=== PATIENT | female | born 1990 | race Caucasian/White ===

== ENCOUNTER 2020-09-12 20:15 | Inpatient (IN) | payer OTHER, SELFPAY ==
[2020-09-12] VITALS (10 sets, daily range): BP systolic 135–151; BP diastolic 85–98; PULSE 77–89; TEMP 36.3–37; BMI 27.5
[2020-09-12] MEDS: 0.9% Normal Saline Single 100 ML IV.SOLN. INTRA-UTER (19:38)
--- NOTE | 2020-09-12 20:19 | HP.PCM.OB_ITS ---
HPI - General HPI Narrative MINO GONZALEZ, is a 29 F who presents at 41 weeks for induction of labor. with care at another practice and transferred in 3rd trimester. conceived with IUI. History of hypothyroidism, Rubella non immune. Maternal Data Information Final RALPH: 09/05/20 Final RALPH Source: US <20 weeks Gestational age: 41 weeks PFSH Home Medications levothyroxine [Synthroid] 25 mcg PO DAILY 09/12/20 [History Last Taken 09/12/20 07:00] [id number] [] 1 tab PO DAILY 09/12/20 [History Last Taken 09/11/20 20:00] Allergy/AdvReac Type Severity Reaction Status Date / Time No Known Allergies Allergy Verified 09/12/20 18:40 NST FHR Rate Baby A Baseline: 145 Variability:: Moderate Accelerations:: 15 x 15 Decelerations:: None FHR Category:: Category I Uterine Activity:: Irregular ROS Constitutional Constitutional: Reports systems reviewed and no addt'l complaints, except as documented; Denies headache(s) Eyes Eyes: Denies acute decrease in peripheral vision, blurry vision or change in vision ENT HEENT: Reports systems reviewed and no addt'l complaints, except as documented Cardiovascular Cardiovascular: Denies chest pain or dizziness Respiratory/Chest Respiratory/Chest: Denies cough, dyspnea, dyspnea on exertion, shortness of meera th at rest or shortness of breath with exertion Gastrointestinal Gastrointestinal: Denies abdominal pain, diarrhea, nausea or vomiting Genitourinary Genitourinary: Denies abdominal discomfort or movement Musculoskeletal Musculoskeletal: Denies limited range of motion Integumentary Integumentary: Reports systems reviewed and no addt'l complaints, except as documented Neurologic Neurologic: Reports systems reviewed and no addt'l complaints, except as documented Psychiatric Psychiatric: Reports systems reviewed and no addt'l complaints, except as docume nted Endocrine Endocrinology: Reports systems reviewed and no addt'l complaints, except as documented Hematologic/Lymphatic Hematologic/Lymphatic: Reports systems reviewed and no addt'l complaints, except as documented Allergic/Immunologic Allergic/Immunologic: Reports systems reviewed and no addt'l complaints, except as documented Vital Signs Vital Signs Vital Signs: 09/12/20 18:37 09/12/20 18:38 09/12/20 18:39 Temperature 97.3 F L Temperature Source Temporal Pulse Rate 89 87 Blood Pressure 151/98 H 138/85 H BP Systolic 151 138 BP Diastolic 98 85 09/12/20 18:55 09/12/20 19:11 09/12/20 19:26 Temperature Temperature Source Pulse Rate 86 86 84 Blood Pressure 136/90 H 135/89 H 140/92 H BP Systolic 136 135 140 BP Diastolic 90 89 92 09/12/20 20:02 Temperature 98.6 F Temperature Source Temporal Pulse Rate 89 Blood Pressure 144/93 H BP Systolic 144 BP Diastolic 93 Weight Weight: 150 lb 5.684 oz Body Mass Index (BMI) 27.5 Physical Exam Narrative Hugo inserted over stylet into cervical os, patient tolerated well. 30ml of NS instilled into hugo balloon. Manual OB Exam: estimated gestational size appropriate, presentation cephalic, dilated 1cm, effaced 80% and station -2 Uterus Palpation: uterus fundus Amniotic Fluid: no amniotic fluid noted Labs Labs Labs: No Data to Display COVID negative GC/CT negative A positive Rubella equivocal RPR negative HIV negative Urine tox negative HBsAG and Hep C not complete Assessment & Plan (1) Encounter for induction of labor: (2) Post-dates : (3) Hypothyroidism: PLAN: 1) Admit to labor and delivery 2) IV and routine labs 3) Elevated BP upon admission, will draw preeclampsia labs 4) FHR and EFM 5) Hugo for cervical ripening then pitocin 6) Planning unmedicated , has applications support engineer for labor support 7) collaborative physician and notified of patient status
[2020-09-12 20:59] LABS: Absolute Lymphocyte Count 2.38 X10^3/uL (0.83-4.51); Absolute Neutrophil Count 7.5 X10^3/uL (2.0-7.7); Basophil# 0.03 X10^3/uL; Basophil% 0.3 % (0-1); Eosinophil# 0.06 X10^3/uL; Eosinophils% 0.5 % (0-5); Hemoglobin 12.9 g/dL (12.0-15.0); Lymphocyte # 2.38 X10^3/ul (0.83-4.51); Lymphocyte % 21.6 % (19-41); Mean Corp Hgb Conc 33.9 g/dL (32-36); Mean Corpuscular Hgb 31.9 pg (27.0-32.0); Mean Corpuscular Volume 93.8 fL (81-99); Mean Platelet Vol. 12.6 fl (6.2-12.0); Monocyte# 0.96 X10^3/uL; Monocyte% 8.7 % (0-10); NRBC Flagged by Analyzer 0 % (0-5); Neutrophil # 7.54 X10^3/uL (2.7-7.7); Neutrophil % 68.4 % (47-70); Platelet Count 228 K/mm3 (150-450); RBC Distribution Width CV 12.9 % (11.6-14.6); RBC Distribution Width SD 43.9 fl (35.1-43.9); Red Blood Count 4.05 M/mm3 (4.2-5.4)
[2020-09-12 21:11] LABS: Protein:Creat Ratio 1979 mg/g CRE (0-200)
[2020-09-12 21:15] LABS: AST(SGOT) 27 U/L (15-37); Alanine Aminotransfer ALT/SGPT 15 U/L (13-56); Creatinine, Serum 0.77 mg/dL (0.55-1.02); EST Glomerular Filtration Rate 93 mL/min (>60); Est Glom Filt Rate - Afr Amer 113 mL/min (>60); Estimated Creatinine Clearance 85.26 ml/min; Uric Acid 5.6 mg/dL (2.6-6.0)
[2020-09-12 23:03] LABS: Hepatitis B Surface Antigen Non-Reactive (Nonreactive)
[2020-09-13] VITALS (54 sets, daily range): BP systolic 116–161; BP diastolic 63–103; PULSE 80–123; TEMP 36.1–37.8; O2SAT 85–100
[2020-09-13 00:10] LABS: Hepatitis C Antibody Non-Reactive (Nonreactive)
[2020-09-13] MEDS: Lactated Ringers 1,000 ML 200 ML IV ×3 (00:21→18:19)
[2020-09-13] MEDS: Oxytocin 30 units/NS 500 ml 30 UNITS/500 ML IV.SOLN IV (00:21)
--- NOTE | 2020-09-13 08:55 | PCM.PN.OB ---
Subjective Subjective Patient seen at bedside. Ambulating in room. Reports minimal pain with contractions. Denies any headaches, SOB, CP, vision changes or RUQ pain Objective Data Objective Data CE- 370/-1 Pitocin 10 mu/min BP's remain elevated at 130-140's/80-90's Denies pain Vital Signs: Vital Signs Temp Pulse BP Pulse Ox 98.0 F 91 139/97 H 99 09/13/20 07:20 09/13/20 08:13 09/13/20 08:13 09/13/20 08:13 Weight: 150 lb 5.684 oz Body Mass Index (BMI) 27.5 Intake & Output: Intake and Output for Last 24 Hours 09/11/20 09/12/20 09/13/20 23:59 23:59 23:59 Intake Total 500 / 500 1541.03 / 1541.03 Output Total 1100 / 1100 Balance 500 / 500 441.03 / 441.03 Lab / Micro Data Attestation: I reviewed the patient's lab results. Result Diagrams: 09/12/20 20:44 09/12/20 20:44 Labs: Laboratory Results - last 24 hr 09/12/20 09/12/20 09/12/20 20:35 20:44 20:44 WBC 11.0 RBC 4.05 L Hgb 12.9 Hct 38.0 MCV 93.8 MCH 31.9 MCHC 33.9 RDW Std Deviation 43.9 RDW Coeff of Darron 12.9 Plt Count 228 MPV 12.6 H Immature Gran % (Auto) 0.500 Neut % (Auto) 68.4 Lymph % (Auto) 21.6 [place] % (Auto) 8.7 Eos % (Auto) 0.5 Baso % (Auto) 0.3 Absolute Neuts (auto) 7.5 Absolute Lymphs (auto) 2.38 Nucleated RBC % 0 Creatinine Estim Creat Clear Calc Est GFR (MDRD) Af Amer Est GFR (MDRD) Non-Af Uric Acid AST ALT U Random Total Protein 76.0 H Urine Creatinine 38.40 Protein/Creatinin Ratio 1979 H Hep Bs Antigen Hepatitis C Antibody Blood Type A POSITIVE Antibody Screen NEGATIVE 09/12/20 09/12/20 09/12/20 20:44 20:44 20:44 WBC RBC Hgb Hct MCV MCH MCHC RDW Std Deviation RDW Coeff of Darron Plt Count MPV Immature Gran % (Auto) Neut % (Auto) Lymph % (Auto) [place] % (Auto) Eos % (Auto) Baso % (Auto) Absolute Neuts (auto) Absolute Lymphs (auto) Nucleated RBC % Creatinine 0.77 Estim Creat Clear Calc 85.26 Est GFR (MDRD) Af Amer 113 Est GFR (MDRD) Non-Af 93 Uric Acid 5.6 AST 27 ALT 15 U Random Total Protein Urine Creatinine Protein/Creatinin Ratio Hep Bs Antigen Non-Reactive Hepatitis C Antibody Non-Reactive Blood Type Antibody Screen ROS Eyes Eyes: Denies blurry vision, change in vision or spots in vision ENT HEENT: Denies dizziness or headache(s) Cardiovascular Cardiovascular: Denies abdominal pain, chest pain or dyspnea Respiratory/Chest Respiratory/Chest: Denies cough, dyspnea, shortness of breath at rest or shortness of breath with exertion Gastrointestinal Gastrointestinal: Denies abdominal pain, diarrhea or vomiting Genitourinary Genitourinary: Denies change in urinary stream, difficulty urinating or dysuria Musculoskeletal Musculoskeletal: Reports none Integumentary Integumentary: Denies rash Neurologic Neurologic: Denies dizziness, headache(s), memory loss or weakness Psychiatric Psychiatric: Reports none Physical Exam Const alert and no apparent distress General Appearance: cooperative and comfortable Exam Limitations: no limitations HEENT normocephalic Eyes General Eye: normal appearance of both eyes Neck full ROM General: normal visual inspection Chest Chest: symmetrical chest wall rise Resp normal respiratory effort and normal air movement Effort and Inspection: symmetric chest movement Auscultation: clear to auscultation bilaterally Cardio regular rate and regular rhythm GI normal to inspection, nondistended, normoactive bowel sounds Back/Spine normal ROM Extremity full ROM and no calf tenderness Extremity Narrative: +2 edema bilateral feet- non pitting General Extremity: normal exam except as noted Skin no rashes or lesions noted Neuro CN's II-XII intact bilaterally and deep tendon reflexes 2+ bilaterally Motor Exam: clonus absent Psych mental status grossly normal Assessment & Plan (1) Encounter for induction of labor: (2) Post-dates : QUALIFIERS: Post-term type: 40-42 weeks gestation Qualified Code(s): O48.0 - Post-term PLAN: Cat. 1 tracing Pitocin at 10 mu/min- continue to titrate per orders Pain medication if indicated Anticipate Dr. Lechuga updated on patient's status
[2020-09-13] MEDS: Lactated Ringers 1,000 ML 50 ML IV (10:05)
--- NOTE | 2020-09-13 13:30 | PCM.PN.OB ---
Subjective Subjective Patient seen at bedside. Starting to feel an increase in pain with contractions but still able to ambulate in room. Patient requesting AROM if CE unchanged. Still desires unmedicated labor and delivery Objective Data Objective Data AROM for meconium fluid CE- 3.5/70/-1 IUPC placed without difficulty Vital Signs: Vital Signs Temp Pulse BP Pulse Ox 97.0 F L 80 139/85 H 95 09/13/20 15:07 09/13/20 16:04 09/13/20 16:04 09/13/20 15:07 Weight: 150 lb 5.684 oz Body Mass Index (BMI) 27.5 Intake & Output: Intake and Output for Last 24 Hours 09/11/20 09/12/20 09/13/20 23:59 23:59 23:59 Intake Total 500 / 500 2851.96 / 2851.96 Output Total 1750 / 1750 Balance 500 / 500 1101.96 / 1101.96 Lab / Micro Data Result Diagrams: 09/12/20 20:44 09/12/20 20:44 Labs: Laboratory Results - last 24 hr 09/12/20 09/12/20 09/12/20 20:35 20:44 20:44 WBC 11.0 RBC 4.05 L Hgb 12.9 Hct 38.0 MCV 93.8 MCH 31.9 MCHC 33.9 RDW Std Deviation 43.9 RDW Coeff of Darron 12.9 Plt Count 228 MPV 12.6 H Immature Gran % (Auto) 0.500 Neut % (Auto) 68.4 Lymph % (Auto) 21.6 [place] % (Auto) 8.7 Eos % (Auto) 0.5 Baso % (Auto) 0.3 Absolute Neuts (auto) 7.5 Absolute Lymphs (auto) 2.38 Nucleated RBC % 0 Creatinine Estim Creat Clear Calc Est GFR (MDRD) Af Amer Est GFR (MDRD) Non-Af Uric Acid AST ALT U Random Total Protein 76.0 H Urine Creatinine 38.40 Protein/Creatinin Ratio 1979 H Hep Bs Antigen Hepatitis C Antibody Blood Type A POSITIVE Antibody Screen NEGATIVE 09/12/20 09/12/20 09/12/20 20:44 20:44 20:44 WBC RBC Hgb Hct MCV MCH MCHC RDW Std Deviation RDW Coeff of Darron Plt Count MPV Immature Gran % (Auto) Neut % (Auto) Lymph % (Auto) [place] % (Auto) Eos % (Auto) Baso % (Auto) Absolute Neuts (auto) Absolute Lymphs (auto) Nucleated RBC % Creatinine 0.77 Estim Creat Clear Calc 85.26 Est GFR (MDRD) Af Amer 113 Est GFR (MDRD) Non-Af 93 Uric Acid 5.6 AST 27 ALT 15 U Random Total Protein Urine Creatinine Protein/Creatinin Ratio Hep Bs Antigen Non-Reactive Hepatitis C Antibody Non-Reactive Blood Type Antibody Screen ROS Eyes Eyes: Denies blurry vision, change in vision or spots in vision ENT HEENT: Denies dizziness or headache(s) Cardiovascular Cardiovascular: Denies abdominal pain, chest pain or dyspnea Respiratory/Chest Respiratory/Chest: Denies cough, dyspnea, shortness of breath at rest or shortness of breath with exertion Gastrointestinal Gastrointestinal: Denies abdominal pain, diarrhea or vomiting Genitourinary Genitourinary: Denies change in urinary stream, difficulty urinating or dysuria Musculoskeletal Musculoskeletal: Reports none Integumentary Integumentary: Denies rash Neurologic Neurologic: Denies dizziness, headache(s), memory loss or weakness Psychiatric Psychiatric: Reports none Physical Exam Const alert and no apparent distress General Appearance: cooperative and comfortable Exam Limitations: no limitations HEENT normocephalic Eyes General Eye: normal appearance of both eyes Neck full ROM General: normal visual inspection Chest Chest: symmetrical chest wall rise Resp normal respiratory effort and normal air movement Effort and Inspection: symmetric chest movement Auscultation: clear to auscultation bilaterally Cardio regular rate and regular rhythm GI normal to inspection, nondistended, normoactive bowel sounds Back/Spine normal ROM Extremity full ROM and no calf tenderness General Extremity: normal exam except as noted Skin no rashes or lesions noted Neuro CN's II-XII intact bilaterally Psych mental status grossly normal Assessment & Plan (1) Post-dates : QUALIFIERS: Post-term type: 40-42 weeks gestation Qualified Code(s): O48.0 - Post-term (2) Encounter for induction of labor: PLAN: Category 1 tracing NST reactive Pitocin 12 mu/min- continue to increase per policy Anticipate Dr. Alvarez updated on patient's status
[2020-09-13] MEDS: Lactated Ringers 500 ML 999 ML IV (16:25)
[2020-09-13] MEDS: fentaNYL-bupivacaine (epidural) 100 ML BAG EPIDURAL ×2 (17:00→22:55)
[2020-09-13] MEDS: Calcium Carbonate 500 MG Tablet 1000 MG PO (20:57)
[2020-09-14] VITALS (42 sets, daily range): BP systolic 108–158; BP diastolic 57–107; PULSE 84–148; RESP 16–18; TEMP 36.1–37.7; O2SAT 91–99
[2020-09-14] MEDS: Lactated Ringers 1,000 ML 200 ML IV ×2 (00:30→05:31)
[2020-09-14] MEDS: fentaNYL-bupivacaine (epidural) 100 ML BAG EPIDURAL (04:04)
[2020-09-14] MEDS: Ondansetron 4 MG/2 ML Vial IV (04:36)
[2020-09-14] MEDS: Oxytocin 30 units/NS 500 ml 30 UNITS/500 ML IV.SOLN 334 UNITS IV (07:08)
--- NOTE | 2020-09-14 08:03 | EX.PCM.OBRPT ---
Assessment & Plan (1) (spontaneous vaginal delivery): (2) Laceration, obstetrical, second degree: Vaginal Delivery Maternal Presentation Maternal Presentation: Medically Indicated Induction Type of Induction: Pitocin, Jones Bulb and Amniotomy Medical Reason for Induction: Post term Operative Information Date of Procedure: 09/14/20 Pre-Operative Diagnosis: Term gestation, induction of labor Post-Operative Diagnosis: Same, live female Surgery / Procedure Performed: Spontaneous Vaginal Delivery Type of Anesthesia: Epidural Estimated Blood Loss: 350 Time of Delivery: 07:00 Findings Description of Procedure: Called to patient's room for examination due to patient feeling pressure. Complete dilation and 0 station. Patient pushing well with contractions. Labor support provided. Several position changes completed while pushing. head delivered with maternal effort. Loose nuchal cord felt and easily reduced. Anterior shoulder delivered followed by posterior shoulder and remainder of infant. Infant placed on maternal abdomen and attended to by nursing staff. IV pitocin started for active management of the third stage. 3 vessel cord clamped and cut after delay by FOB. Infant placed immediately skin to skin. Placenta delivered spontaneously and intact. Patient noted to have a second degree perineal laceration and bilateral labial lacerations that were repaired in usual fashion using 3-0 Vicryl Rapid. Hemostasis obtained. Fundus firm 2 below U. EBL 350cc- APGARS 8/9 Patient and infant bonding and are skin to skin at this time. Dr. Lechuga notified of delivery Presentation: Vertex Amniotic Membrane Rupture Type: Artificial Time of Membrane Rupture: 1250 Amniotic Fluid Description: Lightly stained meconium Placental Delivery Description: Spontaneous Placenta Disposition: With patient Specimen(s) Removed: Placenta home with patient Cord Vessel Description: 3 Vessels Cord Entanglement: Around neck x 1, loose Nuchal Cord Compression: Without compression Infant A Gender: Female (1 minute): 8 (5 minute): 9 Delayed Cord Clamping: Yes Post Vaginal Delivery Medications Given After Delivery: IV Pitocin Episiotomy Description: None Laceration: 1st degree and 2nd degree Complication Complications: None
[2020-09-14] MEDS: 0.9% Saline Lock 10 ML Syringe IV ×3 (09:27→21:32)
[2020-09-14] MEDS: Levothyroxine 25 MCG TABLET PO (10:44)
--- NOTE | 2020-09-14 11:14 | NURSING ---
Epidural catheter removed. Blue tip intact. Patient attempted to stand up with this RN at bedside, but became dizzy upon sitting on the edge of the bed and reported ringing in the ears. This RN and Valentino Waterman RN assisted patient in hygiene while patient was sitting at edge of bed and helped patient lay back down. Patient reports feeling better.
[2020-09-14] MEDS: Prenatal Vits Tablet 1 TABLET PO (12:55)
--- NOTE | 2020-09-14 19:29 | NURSING ---
Call placed to Chula Garcia CNM to update on patient's vitals throughout day. Order for a CBC. Call back with results. Update passed on to Elenita Steen RN.
[2020-09-14 20:10] LABS: Absolute Lymphocyte Count 3.03 X10^3/uL (0.83-4.51); Basophil# 0.05 X10^3/uL; Basophil% 0.2 % (0-1); Eosinophil# 0.02 X10^3/uL; Eosinophils% 0.1 % (0-5); Hemoglobin 8.3 g/dL (12.0-15.0); Lymphocyte # 3.03 X10^3/ul (0.83-4.51); Lymphocyte % 13.1 % (19-41); Mean Corp Hgb Conc 33.2 g/dL (32-36); Mean Corpuscular Hgb 32.3 pg (27.0-32.0); Mean Corpuscular Volume 97.3 fL (81-99); Mean Platelet Vol. 12.1 fl (6.2-12.0); Monocyte# 1.75 X10^3/uL; Monocyte% 7.6 % (0-10); NRBC Flagged by Analyzer 0 % (0-5); Neutrophil # 17.97 X10^3/uL (2.7-7.7); Neutrophil % 77.8 % (47-70); POSITIVE DIFFERENTIAL YES; Platelet Count 165 K/mm3 (150-450); RBC Distribution Width CV 13.5 % (11.6-14.6); RBC Distribution Width SD 48.1 fl (35.1-43.9); Red Blood Count 2.57 M/mm3 (4.2-5.4); White Blood Count 23.1 K/mm3 (4.4-11.0)
[2020-09-14 20:13] LABS: Differential Indicated SCAN CRITERIA MET
[2020-09-14] MEDS: Senna/Docusate Sodium 1 Tablet PO (20:19)
[2020-09-14] MEDS: Naproxen 500 MG Tablet PO (20:19)
[2020-09-14 20:38] LABS: Differential Comment SCANNED
[2020-09-14] MEDS: Sodium Ferric Gluconat 250 MG in 0.9% Normal Saline 250 ML 135 MG IV (21:31)
[2020-09-14] MEDS: DiphenhydrAMINE 50 MG/ML Syringe 25 MG IV (21:31)
[2020-09-15] VITALS (13 sets, daily range): BP systolic 102–139; BP diastolic 52–94; PULSE 96–116; RESP 16–18; TEMP 35.8–36.5; O2SAT 97–100
[2020-09-15] MEDS: 0.9% Saline Lock 10 ML Syringe IV ×3 (00:27→12:54)
[2020-09-15 05:26] LABS: Absolute Lymphocyte Count 3.57 X10^3/uL (0.83-4.51); Absolute Neutrophil Count 14.3 X10^3/uL (2.0-7.7); Basophil# 0.06 X10^3/uL; Basophil% 0.3 % (0-1); Eosinophil# 0.06 X10^3/uL; Eosinophils% 0.3 % (0-5); Hemoglobin 7.7 g/dL (12.0-15.0); Lymphocyte # 3.57 X10^3/ul (0.83-4.51); Mean Corp Hgb Conc 33.5 g/dL (32-36); Mean Corpuscular Hgb 32.6 pg (27.0-32.0); Mean Corpuscular Volume 97.5 fL (81-99); Mean Platelet Vol. 12.5 fl (6.2-12.0); Monocyte# 1.66 X10^3/uL; Monocyte% 8.4 % (0-10); NRBC Flagged by Analyzer 0 % (0-5); Neutrophil # 14.26 X10^3/uL (2.7-7.7); Neutrophil % 71.9 % (47-70); POSITIVE DIFFERENTIAL YES; Platelet Count 160 K/mm3 (150-450); RBC Distribution Width CV 13.5 % (11.6-14.6); Red Blood Count 2.36 M/mm3 (4.2-5.4); White Blood Count 19.8 K/mm3 (4.4-11.0)
[2020-09-15 05:29] LABS: Differential Indicated SCAN CRITERIA MET
--- NOTE | 2020-09-15 08:25 | PCM.PROGNOTE ---
Subjective Subjective Doing well per patient and nursing staff. Ambulating and taking PO without difficulty. Voiding and passing flatus. . Mild headache, no visual changes. Denies chest pain, shortness of breath, dizziness, leg pain, or increased vaginal bleeding or clots. Lochia normal. Pain controlled. Having pain in tailbone. supportive at bedside. Objective Data Objective Data Vital Signs: Vital Signs Temp Pulse Resp BP Pulse Ox 96.5 F L 115 H 18 126/85 H 99 09/15/20 04:00 09/15/20 04:00 09/15/20 04:00 09/15/20 04:00 09/15/20 04:00 Oxygen Delivery Method Room Air Weight: 150 lb 5.684 oz Body Mass Index (BMI) 27.5 Intake & Output: Intake and Output for Last 24 Hours 09/13/20 09/14/20 09/15/20 23:59 23:59 23:59 Intake Total 4542.86 / 4542.86 3577.77 / 3577.77 270 / 270 Output Total 2049 / 0 1900 / 1900 Balance 2492.86 / 2492.86 1677.77 / 1677.77 270 / 270 Lab / Micro Data Result Diagrams: 09/15/20 05:17 09/12/20 20:44 Labs: Laboratory Results - last 24 hr 09/12/20 09/14/20 09/15/20 20:44 20:00 05:17 WBC 23.1 H 19.8 H RBC 2.57 L 2.36 L Hgb 8.3 L 7.7 L Hct 25.0 L 23.0 L MCV 97.3 97.5 MCH 32.3 H 32.6 H MCHC 33.2 33.5 RDW Std Deviation 48.1 H 48.0 H RDW Coeff of Darron 13.5 13.5 Plt Count 165 160 MPV 12.1 H 12.5 H Immature Gran % (Auto) 1.200 H 1.100 H Neut % (Auto) 77.8 H 71.9 H Lymph % (Auto) 13.1 L 18.0 L [place] % (Auto) 7.6 8.4 Eos % (Auto) 0.1 0.3 Baso % (Auto) 0.2 0.3 Absolute Neuts (auto) 18.0 H 14.3 H Absolute Lymphs (auto) 3.03 3.57 Nucleated RBC % 0 0 Differential Comment SCANNED Diff Path Review May foll May foll Crossmatch See Detail Physical Exam Const alert and oriented x3 General Appearance: cooperative Orientation / Consciousness: awake, oriented to person, oriented to place and oriented to time Exam Limitations: no limitations HEENT normocephalic Head and Scalp: normal to inspection, normocephalic and atraumatic Face and Sinus: normal facial exam Eyes General Eye: normal appearance of both eyes Neck full ROM Chest Chest: symmetrical chest wall rise Resp normal respiratory effort and normal air movement Auscultation: clear to auscultation bilaterally Cardio regular rate, regular rhythm, S1 normal heart sound, S2 normal heart sound, no murmurs, no rub, no gallops and no clicks GI normal to inspection, nondistended, normoactive bowel sounds and non-tender GI Narrative: Fundus firm at U appearance of the vagina normal Narrative: left labia mildly edematous, no hematoma Bladder / Kidney Exam: no CVA tenderness Back/Spine normal ROM Extremity normal to inspection and full ROM Extremity Narrative: +1 BLE pitting edema. Jonathan's negative bilaterally Skin no rashes or lesions noted Neuro oriented x3, CN's II-XII intact bilaterally and moves all extremities Sensorium / Orientation: awake, alert and oriented to person Motor Exam: clonus absent Deep Tendon Reflexes: Rt Patellar (L4): 2+ and Lt Patellar (L4): 2+ Assessment & Plan Assessment/Plan (1) Acute blood loss anemia: (2) Laceration, obstetrical, second degree: (3) (spontaneous vaginal delivery): (4) Preeclampsia: PLAN: 1) Routine care 2) support from 3) BP stable, mildly elevated, asymptomatic 4) Hgb 8.3 to 7.7 this am, IV iron yesterday. Will give 2 units of PRBCs, repeat CBC 2 hrs after transfusion completed 5) Pain management 6) notified of patient hgb status and blood transfusion. 7) Discussed with patient would not recommend discharge home until PPD #3 due to preeclampsia and BP remains mild range.
[2020-09-15] MEDS: Levothyroxine 25 MCG TABLET PO (09:51)
[2020-09-15] MEDS: Prenatal Vits Tablet 1 TABLET PO (12:54)
[2020-09-15] MEDS: Naproxen 500 MG Tablet PO (14:56)
[2020-09-15 20:48] LABS: Absolute Lymphocyte Count 2.85 X10^3/uL (0.83-4.51); Absolute Neutrophil Count 11.5 X10^3/uL (2.0-7.7); Basophil# 0.06 X10^3/uL; Basophil% 0.4 % (0-1); Eosinophils% 0.6 % (0-5); Hematocrit 29.1 % (37-47); Hemoglobin 9.9 g/dL (12.0-15.0); Lymphocyte # 2.85 X10^3/ul (0.83-4.51); Lymphocyte % 17.6 % (19-41); Mean Corpuscular Hgb 31.9 pg (27.0-32.0); Mean Corpuscular Volume 93.9 fL (81-99); Mean Platelet Vol. 11.7 fl (6.2-12.0); Monocyte# 1.24 X10^3/uL; Monocyte% 7.7 % (0-10); NRBC Flagged by Analyzer 0 % (0-5); Neutrophil # 11.52 X10^3/uL (2.7-7.7); Neutrophil % 71.2 % (47-70); Platelet Count 164 K/mm3 (150-450); RBC Distribution Width CV 14.3 % (11.6-14.6); RBC Distribution Width SD 48.6 fl (35.1-43.9); White Blood Count 16.2 K/mm3 (4.4-11.0)
[2020-09-16 02:50] VITALS: BP 119/79; PULSE 85; RESP 18; TEMP 36.1
[2020-09-16] MEDS: 0.9% Saline Lock 10 ML Syringe IV (02:51)
[2020-09-16 06:23] LABS: Absolute Lymphocyte Count 2.96 X10^3/uL (0.83-4.51); Absolute Neutrophil Count 8.9 X10^3/uL (2.0-7.7); Basophil# 0.09 X10^3/uL; Basophil% 0.7 % (0-1); Eosinophil# 0.12 X10^3/uL; Eosinophils% 0.9 % (0-5); Hematocrit 28.7 % (37-47); Hemoglobin 9.6 g/dL (12.0-15.0); Lymphocyte # 2.96 X10^3/ul (0.83-4.51); Lymphocyte % 21.9 % (19-41); Mean Corp Hgb Conc 33.4 g/dL (32-36); Mean Corpuscular Hgb 31.6 pg (27.0-32.0); Mean Corpuscular Volume 94.4 fL (81-99); Mean Platelet Vol. 11.5 fl (6.2-12.0); Monocyte% 6.7 % (0-10); NRBC Flagged by Analyzer 0 % (0-5); Neutrophil # 8.93 X10^3/uL (2.7-7.7); Platelet Count 165 K/mm3 (150-450); RBC Distribution Width CV 14.2 % (11.6-14.6); RBC Distribution Width SD 48.6 fl (35.1-43.9); Red Blood Count 3.04 M/mm3 (4.2-5.4); White Blood Count 13.5 K/mm3 (4.4-11.0)
--- NOTE | 2020-09-16 07:15 | PCM.PROGNOTE ---
Subjective Subjective Doing well per patient and nursing staff. Ambulating and taking PO without difficulty. Voiding and passing flatus. . Denies any headache, visual changes, chest pain, SOB, dizziness, leg pain ,or increased bleeding or clots. Feeling well and pain controlled. Objective Data Objective Data Vital Signs: Vital Signs Temp Pulse Resp BP Pulse Ox 97 F L 85 18 119/79 97 09/16/20 02:50 09/16/20 02:50 09/16/20 02:50 09/16/20 02:50 09/15/20 17:50 Oxygen Delivery Method Room Air Weight: 150 lb 5.684 oz Body Mass Index (BMI) 27.5 Intake & Output: Intake and Output for Last 24 Hours 09/14/20 09/15/20 09/16/20 23:59 23:59 23:59 Intake Total 3577.77 / 3577.77 1070 / 1070 500 / 500 Output Total 1900 / 1900 Balance 1677.77 / 1677.77 1070 / 1070 500 / 500 Lab / Micro Data Result Diagrams: 09/16/20 06:10 09/12/20 20:44 Labs: Laboratory Results - last 24 hr 09/12/20 09/15/20 09/16/20 20:44 20:32 06:10 WBC 16.2 H 13.5 H RBC 3.10 L 3.04 L Hgb 9.9 L 9.6 L Hct 29.1 L 28.7 L MCV 93.9 94.4 MCH 31.9 31.6 MCHC 34.0 33.4 RDW Std Deviation 48.6 H 48.6 H RDW Coeff of Darron 14.3 14.2 Plt Count 164 165 MPV 11.7 11.5 Immature Gran % (Auto) 2.500 H 3.800 H Neut % (Auto) 71.2 H 66.0 Lymph % (Auto) 17.6 L 21.9 [place] % (Auto) 7.7 6.7 Eos % (Auto) 0.6 0.9 Baso % (Auto) 0.4 0.7 Absolute Neuts (auto) 11.5 H 8.9 H Absolute Lymphs (auto) 2.85 2.96 Nucleated RBC % 0 0 Crossmatch See Detail Physical Exam Const alert and oriented x3 General Appearance: cooperative Orientation / Consciousness: awake, oriented to person, oriented to place and oriented to time Exam Limitations: no limitations HEENT normocephalic Head and Scalp: normal to inspection, normocephalic and atraumatic Face and Sinus: normal facial exam Eyes General Eye: normal appearance of both eyes Neck full ROM Chest Chest: symmetrical chest wall rise Resp normal respiratory effort and normal air movement Auscultation: clear to auscultation bilaterally Cardio regular rate, regular rhythm, S1 normal heart sound, S2 normal heart sound, no murmurs, no rub, no gallops and no clicks GI normal to inspection, nondistended, normoactive bowel sounds and non-tender GI Narrative: Fundus at U. appearance of the vagina normal Narrative: vaginal sweep and extraction of two golf ball size clots extracted from cervical os due to fundus at U. Fundus down to almost 2 below U after extraction. Patient tolerated well. Bladder / Kidney Exam: no CVA tenderness Bimanual Exam - Vag & Uterus: other Back/Spine normal ROM Extremity normal to inspection and full ROM Skin no rashes or lesions noted Neuro oriented x3, CN's II-XII intact bilaterally and moves all extremities Sensorium / Orientation: awake, alert and oriented to person Motor Exam: clonus absent Deep Tendon Reflexes: Rt Patellar (L4): 2+ and Lt Patellar (L4): 2+ Assessment & Plan Assessment/Plan (1) Preeclampsia: (2) Acute blood loss anemia: (3) Laceration, obstetrical, second degree: (4) (spontaneous vaginal delivery): PLAN: 1) Routine care 2) BP stable 3) Hgb 9.6, asymptomatic after 2 units of PRBCs yesterday 4) Pain management 5) support 6) Planning D/C home tomorrow PPD#3 due to preeclampsia
[2020-09-16 07:48] VITALS: BP 128/86; PULSE 89; RESP 16; TEMP 36.1; O2SAT 96
--- NOTE | 2020-09-16 10:51 | PCM.DC ---
Discharge Instructions Diet Discharge Diet: No restrictions Activity Discharge Activity: Return to Normal Activity, May Drive, May Shower and May Take a Tub Bath May resume sexual activity in: 6 weeks Weight Bearing Status: Full weight bearing Dressing / Incision Call your doctor if your incision/area has: Sudden Increased Bleeding, Increased Pain/ Swelling, Increased Redness and Foul Smelling Discharge Call your doctor if you observe: Fever of 101 or Higher, Inability to urinate, Inability to have a bowel movement, Using more than one pad per hour, Shortness of breath, Dizziness, Fainting spells, Chest pain, Increased palpitations (irregular heartbeat), Calf discomfort and Uncontrolled pain Follow Up Care Please Follow Up With: Irene Garcia CNM When: 3 days for blood pressure check in office, 2 week virtual visit, 6 week in office PP visit Test Results: Test results from this visit will be discussed in further detail at your follow-up appointment, if applicable. Discharge Plan Admission Admit Date/Time: 09/12/20 20:15 Primary Reason for Your Visit: Induction of Labor, Vaginal Delivery Attending Provider: Nat Guidry Instructions Patient Instructions: After a Vaginal , Understanding Preeclampsia, Common Questions About , : Caring for Yourself, at Home Additional Instructions / Restrictions: Take blood pressure once a day, if 160/110, increasing blood pressure, or signs of preeclampsia please call oil and gas exploration technician provider. Discharge Orders/Prescriptions Prescriptions: New acetaminophen 500 mg Tablet 1,000 mg PO Q6H PRN PRN (Reason: Pain 1-10 Or Fever) Qty: 0 RF: 0 Dermoplast (with menthol) 20-0.5 % Aerosol 1 applic topical TID PRN PRN (Reason: for perineal discomfort) Qty: 0 RF: 0 naproxen 500 mg Tablet 500 mg PO Q8H PRN PRN (Reason: Pain Score 1-3) 30 Days Qty: 30 RF: 0 Continued levothyroxine [Synthroid] 25 mcg Tablet 25 mcg PO DAILY RF: 0 [id number] 1 mg Tablet 1 tab PO DAILY RF: 0 Referrals / Follow Up: [facility] [Other] Nat Guidry CNM [Certified Nurse Sausage Inspector] - (3 days in office for blood pressure check, 2 week virtual visit, 6 weeks in office) Disposition Disposition (needs filled in before D/C Order can be placed): Home, self care
--- NOTE | 2020-09-16 10:58 | PN_ITS ---
Subjective Subjective Patient requesting to be discharged home. Asymptomatic. Denies headache, visual changes, chest pain, shortness of breath, leg pain, or any signs of preeclampsia. Objective Data Objective Data Vital Signs: Vital Signs Temp Pulse Resp BP Pulse Ox 97.0 F L 89 16 128/86 H 96 09/16/20 07:48 09/16/20 07:48 09/16/20 07:48 09/16/20 07:48 09/16/20 07:48 Oxygen Delivery Method Room Air Weight: 150 lb 5.684 oz Body Mass Index (BMI) 27.5 Intake & Output: Intake and Output for Last 24 Hours 09/14/20 09/15/20 09/16/20 23:59 23:59 23:59 Intake Total 3577.77 / 3577.77 1070 / 1070 500 / 500 Output Total 1900 / 1900 Balance 1677.77 / 1677.77 1070 / 1070 500 / 500 Lab / Micro Data Result Diagrams: 09/16/20 06:10 09/12/20 20:44 Labs: Laboratory Results - last 24 hr 09/12/20 09/15/20 09/16/20 20:44 20:32 06:10 WBC 16.2 H 13.5 H RBC 3.10 L 3.04 L Hgb 9.9 L 9.6 L Hct 29.1 L 28.7 L MCV 93.9 94.4 MCH 31.9 31.6 MCHC 34.0 33.4 RDW Std Deviation 48.6 H 48.6 H RDW Coeff of Darron 14.3 14.2 Plt Count 164 165 MPV 11.7 11.5 Immature Gran % (Auto) 2.500 H 3.800 H Neut % (Auto) 71.2 H 66.0 Lymph % (Auto) 17.6 L 21.9 Wharton % (Auto) 7.7 6.7 Eos % (Auto) 0.6 0.9 Baso % (Auto) 0.4 0.7 Absolute Neuts (auto) 11.5 H 8.9 H Absolute Lymphs (auto) 2.85 2.96 Nucleated RBC % 0 0 Crossmatch See Detail Assessment & Plan Assessment/Plan (1) Preeclampsia: (2) Acute blood loss anemia: (3) (spontaneous vaginal delivery): PLAN: 1) Reviewed with patient recommendation for 72 hour PP stay due to preeclampsia. Asymptomatic and BP mild range. Reviewed signs and symptoms of Pre-e and when to call. to check BP once daily and if elevated to call [employer]son investigator tay olguin. 2) Follow up in 3 days for blood pressure check in office 3) D/C instructions and reviewed 4) Follow up in 2 weeks and 6 weeks PP 5) D/C home
[2020-09-16] MEDS: Levothyroxine 25 MCG TABLET PO (11:13)
[2020-09-16 12:15] VITALS: BP 128/95; PULSE 84; RESP 16; TEMP 36.6; O2SAT 98
[2020-09-16] MEDS: Dibucaine 30 GM Tube 1 APPLIC TOPICAL (12:47)
[2020-09-17 13:27] LABS: Pathologist Review Reviewed
[2020-09-17 13:29] LABS: Pathologist Review Reviewed
== END 2020-09-16 13:15 | disposition home or self-care (01) | DRG 806 ==
LOC: WPOUT 20:21 → WP 20:21
PROVIDERS: Advanced Practice Midwife; Admitting Provider Advanced Practice Midwife; Visit Provider Advanced Practice Midwife
DX: O48.0 Post-term pregnancy (principal); D62 Acute posthemorrhagic anemia; Z37.0 Single live birth; O70.1 Second degree perineal laceration during delivery; O99.02 Anemia complicating childbirth; O77.0 Labor and delivery complicated by meconium in amniotic fluid; O14.94 Unspecified pre-eclampsia, complicating childbirth; O99.284 Endocrine, nutritional and metabolic diseases complicating childbirth; E03.9 Hypothyroidism, unspecified; O69.81X0 Labor and delivery complicated by cord around neck, without compression, not applicable or unspecified; Z3A.41 41 weeks gestation of pregnancy; Z79.890 Hormone replacement therapy
CPT/HCPCS: 59025; 59050; 82565; 82570; 84156; 84450; 84460; 84550; 85025; 86803; 86850; 86900; 86901; 86920; 87340; 99218; J7050; J7120; P9016; A4216; G0378; J2405; J2916; J3490

== ENCOUNTER → 2020-09-17 20:30 | Outpatient (CLI) | payer OTHER, SELFPAY ==
[2020-09-12 18:42] VITALS: BMI 27.5
== END ==
PROVIDERS: Referring Provider Advanced Practice Midwife; Visit Provider Advanced Practice Midwife
DX: O92.13 Cracked nipple associated with lactation (principal)
CPT/HCPCS: 96158; 96159